=== PATIENT | female | born 1940 | race Caucasian/White ===

== ENCOUNTER 2017-06-08 07:06 | Emergency (ER) | payer MEDICARE, BC ==
[2017-06-08 07:06] VITALS: BMI 23.6
[2017-06-08 07:20] VITALS: RESP 20
--- NOTE | 2017-06-08 07:55 | C.PDOC ---
History Of Present Illness 76-year-old female, presents to the emergency department with two week history of body aches. She has not taken anything at home for symptoms, denies cough, fever, vomiting, diarrhea, or any other associated symptoms. No other complaints at this time. Of note, Pt has Hx of Lung CA and open heart surgery, valve replacement. Time Seen by Provider: 06/08/17 07:28 Chief Complaint (Nursing): Flu-like Symptoms History Per: Patient History/Exam Limitations: no limitations Onset/Duration Of Symptoms: Days Current Symptoms Are (Timing): Still Present Sick Contacts (Context): None Severity: None Past Medical History Reviewed: Historical Data, Nursing Documentation, Vital Signs Vital Signs: Last Vital Signs Temp 100 F H 06/08/17 09:03 Pulse 82 06/08/17 09:03 Resp 20 06/08/17 09:03 BP 114/64 06/08/17 09:03 Pulse Ox 99 06/08/17 09:15 - Medical History PMH: Arthritis, Asthma, Cardiac Aneurysm, Diabetes, Emphysema, Gastritis, HTN, Hypercholesterolemia, Migraine, Osteoporosis, Chronic Kidney Disease Surgical History: CABG, Coronary Stent - [facility] Procedures CLOSED [PERCUTANEOUS] [NEEDLE] BIOPSY OF LUNG (09/16/14) Family History: States: No Known Family Hx - Social History Hx Tobacco Use: Yes Hx Alcohol Use: Yes Hx Substance Use: No Review Of Systems Except As Marked, All Systems Reviewed And Found Negative. Constitutional: Positive for: Malaise. Negative for: Fever Cardiovascular: Negative for: Chest Pain, Palpitations Respiratory: Negative for: Shortness of Breath Gastrointestinal: Negative for: Nausea, Vomiting Musculoskeletal: Negative for: Back Pain Neurological: Negative for: Weakness, Numbness, Headache, Dizziness Physical Exam - Physical Exam Appears: Non-toxic, No Acute Distress Skin: Warm, Dry, No Rash Head: Atraumatic, Normacephalic Eye(s): bilateral: Normal Inspection, PERRL Nose: Normal Oral Mucosa: Moist Lips: Normal Appearing Gingiva: Normal Appearing Throat: Normal Neck: Normal ROM Chest: Symmetrical Cardiovascular: Rhythm Regular, No Murmur Respiratory: Normal Breath Sounds, No Accessory Muscle Use Gastrointestinal/Abdominal: Normal Exam, Soft, No Tenderness Extremity: Normal ROM Neurological/Psych: Oriented x3, Normal Speech Gait: Steady ED Course And Treatment O2 Sat by Pulse Oximetry: 99 (RA) Pulse Ox Interpretation: Normal Progress Note: Treated with tylenol 650 mg PO. On re-evaluation lungs clear, in no distress Reassessment Condition: Unchanged Disposition Counseled Patient/Family Regarding: Diagnosis, Need For Followup - Disposition Referrals: [facility] [Outside] [facility] [Outside] [facility] [Outside] Disposition: HOME/ ROUTINE Disposition Time: 09:30 Condition: STABLE Additional Instructions: Return to ED if any increase symptoms Follow up with clinic for further evaluation Instructions: Viral Syndrome (ED) Forms: [employer] (Polish) - POA Present On Arrival: None - Clinical Impression Clinical Impression: Viral illness - Scribe Statement The provider has reviewed the documentation as recorded by the Scribe (Alexia Bingham) All medical record entries made by the Scribe were at my direction and personally dictated by me. I have reviewed the chart and agree that the record accurately reflects my personal performance of the history, physical exam, medical decision making, and the department course for this patient. I have also personally directed, reviewed, and agree with the discharge instructions and disposition.
[2017-06-08 09:04] VITALS: BP 114/64; PULSE 82; TEMP 100
[2017-06-08 09:11] VITALS: O2SAT 99
== END 2017-06-08 09:39 | disposition home or self-care (01) ==
LOC: C.ER 07:06
DX: B34.9 Viral infection, unspecified (principal); E78.00 Pure hypercholesterolemia, unspecified; I12.9 Hypertensive chronic kidney disease with stage 1 through stage 4 chronic kidney disease, or unspecified chronic kidney disease; N18.9 Chronic kidney disease, unspecified; E11.9 Type 2 diabetes mellitus without complications; M81.0 Age-related osteoporosis without current pathological fracture; Z72.0 Tobacco use